=== PATIENT | female | born 1990 | race Caucasian/White ===

== ENCOUNTER 2024-11-12 21:59 | Emergency (ER) | payer OTHER, SELFPAY ==
[2024-11-12 22:24] VITALS: BP 132/82; PULSE 90; RESP 18; TEMP 36.8; O2SAT 99; BMI 30.7
[2024-11-12 22:30] LABS: Appearance Urine Clear (Clear)
[2024-11-12 23:12] LABS: Ur HCG Qualitative* Negative (Negative)
--- NOTE | 2024-11-12 23:53 | ED.GENADULT ---
HPI - General Adult General Time Seen by Provider: 23:53 Date Seen: 11/12/24 Chief complaint: Abdominal Pain Stated complaint: lower abdominal pain Time Seen by Provider: 11/12/24 23:53 Source: patient Mode of arrival: ambulatory History of Present Illness HPI narrative: Nolan is a 34-year-old female who presents the emergency department for evaluation of abdominal pain. Patient complains of intermittent abdominal pain which has been ongoing for the past 1-2 years. Patient reports that symptoms have been worsening and she realizes she needs to get it evaluated however has been having difficulty as she currently has no health insurance. Patient reports ongoing intermittent abdominal discomfort along with feeling bloated after eating, changes in bowel movements, and general discomfort in her abdomen. Patient reports history of cervical cancer status post hysterectomy back in 2016. Patient reports no follow-up since her procedure, and has concerns for possible colon cancer: Etiology of symptoms as family members have had colon cancer. Patient denies any fever, chills, chest pain, cough, shortness of breath, vomiting, diarrhea. Denies any urinary symptoms, no other complaints. Related Data Home Medications ?Medication ?Instructions ?Recorded ?Confirmed No Known Home Medications 11/12/24 11/12/24 Allergies Allergy/AdvReac Type Severity Reaction Status Date / Time tramadol Allergy Mild Mental Verified 11/12/24 22:29 Issues Review of Systems Narrative: Past medical history, past surgical history, medications, allergies, family history, and social history were reviewed with the patient. No additional pertinent items. A medically appropriate review of systems was performed with pertinent positives and negatives noted in HPI, all other systems negative. [facility] Surgical History (Updated 11/12/24 @ 22:28 by Brian Emery RN) History of hysterectomy ?Z90.710 - Acquired absence of both cervix and uterus (ICD-10) Social History Smoking Status: Never smoker Second hand tobacco smoke exposure: No How often do you have a drink containing alcohol: never AUDIT-C Alcohol total score: 0 Non-prescribed substance use: marijuana (any form) Exam Narrative: Exam Narrative: General: Afebrile, no acute distress HEENT: Normocephalic, atraumatic, conjunctiva normal. MMM Neck: non-tender, supple Cardio: regular rate. regular rhythm Resp: Normal work of breathing, no respiratory distress, lungs clear bilaterally, no wheezing, rhonchi, rales Chest/Back: no visual signs of trauma, no midline tenderness, no CVA tenderness Abdomen: soft, non distension, no tenderness, no peritoneal signs Neuro: alert and fully oriented. CN II-XII grossly intact. Grossly normal strength and sensation in all extremities. MSK: no deformities. Normal range of motion Integumentary/Skin: no rash visualized, normal color Psych: normal affect, normal behavior Const: Vital Signs, click to edit/add: Vital Signs - 24 hr 11/12/24 22:24 11/13/24 00:15 11/13/24 02:19 Temperature 98.2 F 98.2 F 98.2 F Pulse Rate [Right Pulse Oximeter] 90 79 85 Respiratory Rate 18 18 18 Blood Pressure [Ri ght Upper Arm] 132/82 129/84 137/80 Pulse Oximetry 99 99 99 Oxygen Delivery Me thod Room Air Room Air Room Air 11/13/24 02:20 Temperature 98.2 F Pulse Rate [Right Pulse Oximeter] 85 Respiratory Rate 18 Blood Pressure [Ri ght Upper Arm] 137/80 Pulse Oximetry Oxygen Delivery Me thod Course Vital Signs Vital signs: Initial Vital Signs Temperature 98.2 F 11/12/24 22:24 Temperature Source Temporal Artery Scan 11/12/24 22:24 Pulse Rate 90 11/12/24 22:24 Respiratory Rate 18 11/12/24 22:24 Blood Pressure 132/82 11/12/24 22:24 Blood Pressure Mean 98 11/12/24 22:24 Blood Pressure Position Sitting 11/12/24 22:24 Pulse Oximetry 99 11/12/24 22:24 Oxygen Delivery Method Room Air 11/12/24 22:24 Vital Signs Temperature 98.2 F 11/12/24 22:24 Pulse Rate 90 11/12/24 22:24 Respiratory Rate 18 11/12/24 22:24 Blood Pressure 132/82 11/12/24 22:24 Pulse Oximetry 99 11/12/24 22:24 Oxygen Delivery Method Room Air 11/12/24 22:24 Temperature 98.2 F 11/13/24 02:20 Pulse Rate 85 11/13/24 02:20 Respiratory Rate 18 11/13/24 02:20 Blood Pressure 137/80 11/13/24 02:20 Pulse Oximetry 99 11/13/24 02:19 Oxygen Delivery Method Room Air 11/13/24 02:19 Medical Decision Making [facility] Narrative Medical decision making narrative: Nolan is a 34-year-old female who presents the emergency department for evaluation of abdominal pain. Upon arrival patient is nontoxic appearing, afebrile, no distress. Patient hemodynamically stable vital signs within normal limits. Abdomen is soft, nondistended, nontender, no rebound, no guarding, no peritoneal signs. Upon arrival comprehensive labs were performed which were unremarkable with no leukocytosis white blood cell count 8.4, hemoglobin 13.1, no acute metabolic or electrolyte abnormality, no transaminitis, normal lipase. Urinalysis with no evidence of acute infection, negative . I discussed results with patient. Patient reports symptoms that have been intermittent for the past 1-2 years however does not currently have health insurance so has not been following up. Laboratory testing reassuring in the ED. Abdomen is benign with no tenderness. Low suspicious for acute intra-abdominal infection that would require emergent surgery/antibiotics. I did consider and discuss with patient regarding further imaging with CT scan however after shared decision making will plan to hold off on CT imaging at this time. Patient is agreeable to close outpatient follow-up with primary care provider, likely referral to GI and possible further evaluation with colonoscopy. Patient feels comfortable this plan resources provided. Return precautions discussed if high fever, severe abdominal pain, persistent vomiting, bright red blood per rectum, any worsening symptoms. Patient understands and agrees the plan. Lab Data Labs: Lab Results 11/12/24 11/12/24 11/13/24 Range/Units 22:25 23:02 00:37 WBC 8.46 (4.50-11.00) K/uL RBC 4.17 (4.00-5.20) m/uL Hgb 13.1 (12.0-16.0) gm/dL Hct 38.5 (33.0-51.0) % MCV 92 (80-100) fL MCH 31 (26-34) pg MCHC 34 (32-36) gm/dL RDW Coeff of Atul 11.7 (11.5-15.5) % Plt Count 275 (140-440) K/uL Neut % (Auto) 50.0 (42.0-72.0) % Lymph % (Auto) 33.8 (20-44) % Door % (Auto) 6.9 (0.0-11.0) % Eos % (Auto) 8.9 H (0.0-7.0) % Baso % (Auto) 0.4 (0.0-3.0) % Neut # (Auto) 4.24 (1.7-7.0) K/uL Lymph # (Auto) 2.86 (0.90-2.90) K/uL Door # (Auto) 0.60 (0.00-0.90) K/UL Eos # (Auto) 0.80 H (0.00-0.50) K/uL Baso # (Auto) 0.03 (0.00-0.30) K/uL Abs Immat Gran (auto) 0.00 (0.00-0.30) K/uL Imm/Tot Granulo (auto) 0.0 % Sodium 137 (135-149) mmol/L Potassium 4.0 (3.6-5.1) mmol/L Chloride 104 (96-114) mmol/L Carbon Dioxide 27 (20-32) mmol/L Anion Gap 6 L (7-15) mEq/L BUN 10 (5-24) mg/dL Creatinine 0.7 (0.5-1.5) mg/dL Estimated Creat Clear 107.01 Estimated GFR 117 ml/min Glucose 92 (60-115) mg/dL Calcium 8.9 (8.4-10.6) mg/dL Total Bilirubin 0.2 (0.1-1.5) mg/dL AST 21 (12-35) U/L ALT 12 (4-35) U/L Alkaline Phosphatase 62 (40-150) U/L Total Protein 6.7 (6.0-8.3) g/dL Albumin 4.0 (3.3-5.0) g/dL Lipase 90 (23-300) U/L Urine Color Yellow (Yellow) Urine Appearance Clear (Clear) Urine pH 7.0 (5.0-8.5) Ur Specific [place] 1.025 (1.000-1.030) Urine Protein Negative (Negative) Urine Glucose (UA) Negative (Negative) Urine Ketones Negative (Negative) Urine Blood Trace-intact A (Negative) Urine Nitrite Negative (Negative) Urine Bilirubin Negative (Negative) Urine Urobilinogen 0.2 (0.2-1.0) Ur Leukocyte Esterase Negative (Negative) Urine RBC 0-2 (0-2) Urine WBC 0-2 (0-5) Ur Squamous Epith Cells Few (None-Few) Urine Bacteria None (None) Urine HCG, Qual Negative (Negative) Discharge Plan Discharge Clinical Impression: Abdominal pain Patient Disposition: Home, Self-Care Condition: Stable Additional Instructions: Please follow-up with your primary care provider or follow-up with [facility]. Please call to schedule appointment. Recommend following up with a primary care provider and to see a specialist mergers and acquisitions associate for likely colonoscopy. Please return to the emergency department if you develop persistent high fever, severe pain, bright red blood per rectum, any worsening symptoms. It is a pleasure taking care of you today. We hope you feel better soon. Prescriptions: No Action No Known Home Medications Follow Up/Referrals: Provider,Not a Local [Primary Care Provider, Family Practice] Stand Alone Forms: [facility] [employer] Info Instructions
[2024-11-13 00:15] VITALS: BP 129/84; PULSE 79; RESP 18; TEMP 36.8; O2SAT 99
[2024-11-13 00:42] LABS: Hematocrit* 38.5 % (33.0-51.0); Hemoglobin* 13.1 gm/dL (12.0-16.0); Immature Granulocytes Abs Auto 0.00 K/uL (0.00-0.30); Immature Granulocytes Pct Auto 0.0 %; Lymphocytes Absolute Auto 2.86 K/uL (0.90-2.90); Mean Corpuscular HGB Conc 34 gm/dL (32-36); Mean Corpuscular Hemoglobin 31 pg (26-34); Mean Corpuscular Volume 92 fL (80-100); RDW Coefficient of Variation % 11.7 % (11.5-15.5); Red Blood Count* 4.17 m/uL (4.00-5.20); White Blood Count* 8.46 K/uL (4.50-11.00)
[2024-11-13 00:55] LABS: Albumin* 4.0 g/dL (3.3-5.0); Chloride* 104 mmol/L (96-114); Potassium* 4.0 mmol/L (3.6-5.1); Sodium* 137 mmol/L (135-149)
[2024-11-13 00:57] LABS: Alanine Aminotransferase* 12 U/L (4-35); Anion Gap 6 mEq/L (7-15); Aspartate Amino Transferase* 21 U/L (12-35); Blood Urea Nitrogen* 10 mg/dL (5-24); Carbon Dioxide* 27 mmol/L (20-32); Creatinine* 0.7 mg/dL (0.5-1.5); Est. Creatinine Clearance* 107.01; Estimated Glomerular Filt Rate 117 ml/min
[2024-11-13 00:58] LABS: Alkaline Phosphatase* 62 U/L (40-150); Bilirubin Total* 0.2 mg/dL (0.1-1.5); Calcium* 8.9 mg/dL (8.4-10.6); Glucose* 92 mg/dL (60-115); Total Protein* 6.7 g/dL (6.0-8.3)
[2024-11-13 00:59] LABS: Slide Review Reflex No
[2024-11-13 02:19] VITALS: BP 137/80; PULSE 85; RESP 18; TEMP 36.8; O2SAT 99
[2024-11-13 02:20] VITALS: BP 137/80; PULSE 85; RESP 18; TEMP 36.8
== END 2024-11-13 02:20 | disposition home or self-care (01) ==
PROVIDERS: Emergency Provider Emergency Medicine
DX: R10.9 Unspecified abdominal pain (principal)
CPT/HCPCS: 36415; 80053; 81001; 81025; 83690; 85025; 99283; 99284; 99285